=== PATIENT | female | born 1950 | race Two or more races ===

== ENCOUNTER 2021-05-14 14:33 | Outpatient (CLI) | payer OTHER | END 2021-05-14 14:45 | disposition home or self-care (01) | LOC: MAMO-SONO 14:33 | PROVIDERS: ATTEND Internal Medicine | DX: N60.12 Diffuse cystic mastopathy of left breast (principal); Z12.31 Encounter for screening mammogram for malignant neoplasm of breast ==

== ENCOUNTER 2025-04-05 11:42 | Outpatient (CLI) | payer OTHER | END 2025-04-05 11:44 | disposition home or self-care (01) | LOC: MAMO-SONO 11:42 | PROVIDERS: ATTEND Internal Medicine | DX: Z12.31 Encounter for screening mammogram for malignant neoplasm of breast (principal); M81.0 Age-related osteoporosis without current pathological fracture ==

== ENCOUNTER 2025-05-11 12:01 | Outpatient (CLI) | payer OTHER | END 2025-05-11 12:02 | disposition home or self-care (01) | LOC: NUCLEAR 12:01 | PROVIDERS: ATTEND Internal Medicine | DX: M81.0 Age-related osteoporosis without current pathological fracture (principal) ==